=== PATIENT | female | born 1965 | race African-American/Black ===

== ENCOUNTER 2025-04-05 08:15 | Emergency (ER) | payer OTHER ==
[~2025-04-05] VITALS: Ht 167.6 cm; Wt 95.0 kg
[2025-04-05 08:20] VITALS: BP 180/100; PULSE 100; RESP 16; TEMP 36.9; O2SAT 100
[2025-04-05] MEDS ORDERED: MAGNESIUM 2 G PREMIX 50 ML IV ONE (08:30)
== END 2025-04-05 09:45 | disposition left against medical advice (07) ==
LOC: ER 08:15
DX: R53.1 Weakness (principal); R94.31 Abnormal electrocardiogram [ECG] [EKG]; E11.9 Type 2 diabetes mellitus without complications; I10 Essential (primary) hypertension; F41.9 Anxiety disorder, unspecified
CPT/HCPCS: 71045; 93005; 99283; Z7610 ×2; A4606